=== PATIENT | female | born 1970 | race Hispanic/Latino ===

== ENCOUNTER → 2021-04-18 | Day surgery (SDC) | payer OTHER ==
[~2021-04-18] MED LIST: ALLERGY RELIEF10 M4 PO; AMOX TR-K CLV1 EAC2 PO; LEVOTHYROXINE50 MCG PO; LISINOPRIL10 MG PO; PROVENTIL HFA6.7 GM INH
[2021-04-18 10:30] VITALS: BP 99/57
== END | disposition home or self-care (01) ==
LOC: OR 06:39
PROVIDERS: ATTEND Internal Medicine Gastroenterology
DX: Z12.11 Encounter for screening for malignant neoplasm of colon (principal); D12.2 Benign neoplasm of ascending colon; K29.70 Gastritis, unspecified, without bleeding; B96.81 Helicobacter pylori [H. pylori] as the cause of diseases classified elsewhere; K20.90 Esophagitis, unspecified without bleeding; K57.30 Diverticulosis of large intestine without perforation or abscess without bleeding; K64.8 Other hemorrhoids; I10 Essential (primary) hypertension; E78.5 Hyperlipidemia, unspecified; Z01.810 Encounter for preprocedural cardiovascular examination; Z01.812 Encounter for preprocedural laboratory examination; Z20.822 Contact with and (suspected) exposure to COVID-19
CPT/HCPCS: 43239; 45380; 45385; 81025; 93005; U0002

== ENCOUNTER → 2024-06-19 | Outpatient (REF) | payer OTHER ==
[~2024-06-19] MED LIST changes: +IOPAMIDOL 370 MG/ML 100 ML INFUS..BTL INJ ONE
[2024-06-19 14:34] LABS: CREATININE, SERUM 0.79 mg/dL (0.57-1.11)
== END ==
LOC: CT 13:44
PROVIDERS: ATTEND Internal Medicine Gastroenterology
DX: R10.84 Generalized abdominal pain (principal)
CPT/HCPCS: 36415; 74177; 82565; 84520; Q9967